=== PATIENT | female | born 1955 | race African-American/Black ===

== ENCOUNTER 2016-11-28 02:10 | Emergency (ER) | payer SELFPAY ==
[2016-11-28 02:18] VITALS: BP 127/86
[2016-11-28] MEDS ORDERED: Ibuprofen TAB* 800 MG PO ONE (03:03)
--- NOTE | 2016-11-28 03:11 | ED ---
Adam Pruett Karl, scribed for Jorge Avendano MD on 11/28/16 at 0231 . Lower Extremity - HPI Summary HPI Summary: Pt is a 61 y/o female that presents to the ED c/o 6/10 left foot and right knee pain after slipping on ice yesterday evening. Pt reported that she has been having trouble ambulating since the fall. Pt stated she cannot move her left foot and has significant swelling on her right knee. Pt denied any use of OTC pain medication such as Motrin or Ibuprofen. - History of Current Complaint Chief Complaint: EDExtremityLower Stated Complaint: FELL-RT KNEE/LT FOOT PAIN Time Seen by Provider: 11/28/16 02:24 Hx Obtained From: Patient Hx Last Menstrual Period: SEP 2002 Mechanism Of Injury: Fall From A Standing Position Onset/Duration: Still Present Severity Initially: Moderate Severity Currently: Moderate Pain Intensity: 6 - left foot/ right knee Pain Scale Used: 0-10 Numeric Timing: Constant Location: Is Discrete @ - left foot/right knee Aggravating Factor(s): Weight Bearing Alleviating Factor(s): Ice - Allergies/Home Medications Allergies/Adverse Reactions: Allergies Allergy/AdvReac Type Severity Reaction Status Date / Time Diphenhydramine Allergy Intermediate Unknown Verified 11/28/16 02:25 [From Benadryl] Reaction Details Home Medications: Home Medications [id number]-[id number]-[id number] [Calcium & Magnesium + Zin 334-134-5 mg] 1 tab PO [History] PMH/Surg Hx/FS Hx/Imm Hx Endocrine/Hematology History: Denies: Hx Diabetes, Hx Thyroid Disease Cardiovascular History: Denies: Hx Hypertension Respiratory History: Denies: Hx Asthma, Hx Chronic Obstructive Pulmonary Disease (COPD) GI History: Denies: Hx Ulcer Musculoskeletal History: Denies: Hx Rheumatoid Arthritis, Hx Osteoporosis - Surgical History Surgery Procedure, Year, and Place: gastric bypass Infectious Disease History: No Infectious Disease History: Denies: Hx Clostridium Difficile, Hx Hepatitis, Hx Human Immunodeficiency Virus (HIV), Hx of Known/Suspected MRSA, Hx Shingles, Hx Tuberculosis, Hx Known/ Suspected VRE, Hx Known/Suspected VRSA, History Other Infectious Disease, Traveled Outside the [place] in Last 30 Days - Family History Known Family History: Negative: Cardiac Disease, Hypertension, Diabetes - Social History Alcohol Use: Rare Substance Use Type: Reports: None Smoking Status (MU): Former Smoker Have You Smoked in the Last Year: No Review of Systems Constitutional: Negative Eyes: Negative ENT: Negative Cardiovascular: Negative Respiratory: Negative Gastrointestinal: Negative Genitourinary: Negative Positive: Arthralgia - left foot/right knee, Edema - right knee Skin: Negative Neurological: Negative Psychological: Normal All Other Systems Reviewed And Are Negative: Yes Physical Exam Triage Information Reviewed: Yes Vital Signs On Initial Exam: Initial Vitals Temp Pulse Resp BP Pulse Ox 96 F 107 20 127/86 99 11/28/16 02:13 11/28/16 02:13 11/28/16 02:13 11/28/16 02:13 11/28/16 02:13 Vital Signs Reviewed: Yes Appearance: Positive: Pain Distress - MILD DISCOMFORT, Obese Skin: Positive: Warm Head/Face: Positive: Normal Head/Face Inspection ENT: Positive: Hearing grossly normal Respiratory/Lung Sounds: Positive: Breath Sounds Present Musculoskeletal: Positive: Other - RT KNEE MILD PATELLA SWELLING, NO DEFORMITY, FROM LT ANKLE FROM, NVI, NO DEFORMITY Neurological: Positive: Sensory/Motor Intact, Alert, Oriented to Person Place, Time Diagnostics - Vital Signs Vital Signs Temp Pulse Resp BP Pulse Ox 11/28/16 02:13 96 F 107 20 127/86 99 - Laboratory Lab Statement: Any lab studies that have been ordered have been reviewed, and results considered in the medical decision making process. - Radiology XR Left Foot Xray Interpretation: No Acute Changes Radiology Interpretation Completed By: ED Physician - IMPRESSION: No evidence for fracture of the left foot. XR Right Knee Xray Interpretation: No Acute Changes Radiology Interpretation Completed By: ED Physician - IMPRESSION: No evidence for fracture of the right knee. Soft tissue swelling of the right knee. Lower Extremity Course/Dx - Diagnoses Provider Diagnoses: Contusion of left foot, Contusion of right knee Discharge - Discharge Plan Condition: Improved Disposition: HOME Prescriptions: Ibuprofen TAB* [Motrin TAB* 600 MG] 600 mg PO Q6H #30 tab Patient Education Materials: Knee Pain (ED), Arthralgia (ED) Additional Instructions: Please follow up with your primary care provider and Dr. Reddy (Orthopedics). Return to the emergency department for changing or worsening symptoms. The documentation as recorded by the Adam chambers Karl accurately reflects the service I personally performed and the decisions made by Juan Alberto pop David, MD.
--- NOTE | 2016-11-28 18:53 | RAD ---
Indication: Foot pain 3 views of the foot are reviewed. There appears to be a lucency at the distal end of the proximal phalanx of the great toe which is likely due to erosion. No definite fracture is noted although degenerative changes of the first metatarsal phalangeal joint is noted. IMPRESSION: No fracture is noted. Likely erosion at the distal end of the proximal phalanx of the great toe. Degenerative changes of the first metatarsal phalangeal joint is noted.
--- NOTE | 2016-11-28 18:57 | RAD ---
Indication: Fall. Right knee injury. 2 views of the knee demonstrates degenerative changes of the patellofemoral joint. Suprapatellar effusion is noted. Osteophyte formation is noted. No definite fracture is identified. IMPRESSION: Degenerative changes of the patellofemoral joint. No fracture is noted.
== END 2016-11-28 03:20 | disposition home or self-care (01) ==
LOC: ED 02:10
DX: S90.32XA Contusion of left foot, initial encounter (principal); S80.01XA Contusion of right knee, initial encounter; M25.561 Pain in right knee; M79.672 Pain in left foot; Z87.891 Personal history of nicotine dependence; W19.XXXA Unspecified fall, initial encounter; Y93.9 Activity, unspecified; Y92.9 Unspecified place or not applicable; Y99.9 Unspecified external cause status
CPT/HCPCS: 99282; A9270-GY

== ENCOUNTER → 2017-06-25 02:46 | Emergency (ER) | payer SELFPAY ==
[~2017-06-25 02:46] MED LIST: Haloperidol INJ IV/IM* 5 MG/ML AMP ONE; LORazepam INJ* 2 MG/ML 1 ML VIAL ONE
--- NOTE | 2017-06-25 04:05 | ED ---
Kel Pruett SooYoung, scribed for Jorge Avendano MD on 06/25/17 at 0252 . Substance Abuse/Use - HPI Summary HPI Summary: LEVEL 5 CAVEAT - ETOH INTOXICATION A 62 y/o F BIBA and police presents to ED for ETOH intoxication. Pt was disoriented, and arrested. She states she drank a lot. States she wants to go home. - History Of Current Complaint Chief Complaint: EDSubstanceAbuse Stated Complaint: ETOH Time Seen by Provider: 06/25/17 02:47 Hx Obtained From: Patient, EMS, Other: - police Hx Last Menstrual Period: SEP 2002 Ingestion History: Type/Name Of Drug - ETOH Overdose Characteristics: Oral - Allergies/Home Medications Allergies/Adverse Reactions: Allergies Allergy/AdvReac Type Severity Reaction Status Date / Time Diphenhydramine Allergy Intermediate Unknown Verified 11/28/16 02:25 [From Benadryl] Reaction Details PMH/Surg Hx/FS Hx/Imm Hx Previously Healthy: Yes - denies PMHx Endocrine/Hematology History: Denies: Hx Diabetes, Hx Thyroid Disease Cardiovascular History: Denies: Hx Hypertension Respiratory History: Denies: Hx Asthma, Hx Chronic Obstructive Pulmonary Disease (COPD) GI History: Denies: Hx Ulcer Musculoskeletal History: Denies: Hx Rheumatoid Arthritis, Hx Osteoporosis - Surgical History Surgery Procedure, Year, and Place: gastric bypass Infectious Disease History: Denies: Hx Clostridium Difficile, Hx Hepatitis, Hx Human Immunodeficiency Virus (HIV), Hx of Known/Suspected MRSA, Hx Shingles, Hx Tuberculosis, Hx Known/ Suspected VRE, Hx Known/Suspected VRSA, History Other Infectious Disease - Family History Known Family History: Negative: Cardiac Disease, Hypertension, Diabetes - Social History Occupation: Employed Full-time Lives: With Family Alcohol Use: Rare Substance Use Type: Reports: None Smoking Status (MU): Former Smoker Have You Smoked in the Last Year: No Review of Systems - ROS Summary Review of Systems Summary: LEVEL 5 CAVEAT - ETOH INTOXICATION Positive: Other - pos: ETOH intoxication All Other Systems Reviewed And Are Negative: No Physical Exam Triage Information Reviewed: Yes Vital Signs Reviewed: Yes Appearance: Positive: Well-Appearing, No Pain Distress - aob Skin: Positive: Warm, Dry Head/Face: Positive: Normal Head/Face Inspection Eyes: Positive: TAMEKA ENT: Positive: Hearing grossly normal Neck: Positive: Supple Respiratory/Lung Sounds: Positive: Breath Sounds Present Cardiovascular: Positive: RRR Abdomen Description: Positive: Nontender, Soft Musculoskeletal: Positive: Strength/ROM Intact Neurological: Positive: Sensory/Motor Intact Course/Dx - Course Course Of Treatment: Pt's serum alcohol is 260. - Diagnoses Provider Diagnoses: Alcohol intoxication Discharge - Discharge Plan Condition: Improved Disposition: HOME Patient Education Materials: Alcohol Intoxication (ED) Referrals: No Primary Care Phys,NOPCP [Primary Care Provider] - [facility] [place]] The documentation as recorded by the Kel chambers SooYoung accurately reflects the service I personally performed and the decisions made by , Jorge Avendano MD.
[2017-06-25 09:46] VITALS: BP 116/64
== END | disposition home or self-care (01) ==
LOC: ED 02:46
DX: F10.129 Alcohol abuse with intoxication, unspecified (principal); Z87.891 Personal history of nicotine dependence
CPT/HCPCS: 36415; 80320; 99285; G0480; J1630; J2060

== ENCOUNTER 2017-08-10 15:04 | Emergency (ER) | payer BC ==
[2017-08-10 15:11] VITALS: BP 100/67
--- NOTE | 2017-08-10 15:51 | UC ---
Barbie Pruett Emily, scribed for Claudette Mejia MD on 08/10/17 at 1530 . Dental HPI - HPI Summary HPI Summary: This patient is a 62 year old F presenting to urgent care with a chief complaint of tooth pain in left lower jaw that began Luke days ago. Tooth is sensitive to cold and touch. The CC is described as throbbing. Pt has developed mild swelling of lower gum near tooth. The patient rates the pain 7/10 in severity. Symptoms were not alleviated by ibuprofen. Patient denies fevers, chills, nausea, and vomiting. Pt reports having frequent dental problems. - does not have a dentist. Pt is not immunocompromised. Patients medications reviewed this visit. - History of Current Complaint Chief Complaint: UCDentalProblem Stated Complaint: TOOTH PAIN Time Seen by Provider: 08/10/17 15:11 Hx Obtained From: Patient Hx Last Menstrual Period: SEP 2002 Onset/Duration: Sudden Onset, Lasting Days, Still Present Severity: Moderate Pain Intensity: 7 Pain Scale Used: 0-10 Numeric Aggravating Factor(s): Cold - Allergies/Home Medications Allergies/Adverse Reactions: Allergies Allergy/AdvReac Type Severity Reaction Status Date / Time Diphenhydramine Allergy Intermediate Unknown Verified 11/28/16 02:25 [From Benadryl] Reaction Details PMH/Surg Hx/FS Hx/Imm Hx Previously Healthy: Yes Other Psychological History: Negative hepatits and HIV - Surgical History Surgical History: Yes Surgery Procedure, Year, and Place: gastric bypass - Family History Known Family History: Positive: Diabetes, Other - Cancer Negative: Cardiac Disease, Hypertension - Social History Occupation: Employed Full-time Lives: With Family Alcohol Use: Occasionally Substance Use Type: None Smoking Status (MU): Former Smoker Have You Smoked in the Last Year: No When Did the Patient Quit Smoking/Using Tobacco: 24 years Review of Systems Constitutional: Other - Negative fever and chills ENT: Other - Tooth pain Gastrointestinal: Other - Negative nausea and vomiting Is Patient Immunocompromised?: No All Other Systems Reviewed And Are Negative: Yes Physical Exam Triage Information Reviewed: Yes Appearance: Well-Appearing, No Pain Distress, Well-Nourished Vital Signs: Initial Vital Signs Temp 96.9 F 08/10/17 15:08 Pulse 41 08/10/17 15:08 Resp 18 08/10/17 15:08 BP 100/67 08/10/17 15:08 Pulse Ox 99 08/10/17 15:08 Vital Signs Reviewed: Yes Eye Exam: Normal Eyes: Positive: Conjunctiva Clear ENT Exam: Normal ENT: Positive: Hearing grossly normal, Pharynx normal, TMs normal Dental: Positive: Other: - #23 + obvious cavity at gumline + TTP no discharge No fluctuance + TTP tooth. buccal gumline No edema of tongue No TMJ pain, No trismus Neck exam: Normal Neck: Positive: Supple, Nontender, No Lymphadenopathy Respiratory Exam: Normal Respiratory: Positive: Chest non-tender, Lungs clear, Normal breath sounds Cardiovascular Exam: Normal Cardiovascular: Positive: RRR, No Murmur Musculoskeletal Exam: Normal Neurological Exam: Normal Psychological Exam: Normal Skin Exam: Normal Dental Complaint Course/Dx - Course Course Of Treatment: Pt with discomfort and swelling #23 - erythema and swelling at gumline. no discharge. rx penvk. swish/spit. motrin/apap. T+C# 3 for bedtime - precautions discussed. dental list given. pt also inquired re new PCP second to difficulty getting appt - physician referral center info given - Differential Dx/Diagnosis Provider Diagnoses: dental pain Discharge - Discharge Plan Condition: Stable Disposition: HOME Prescriptions: Acetaminop/Codeine 30 MG TAB* [Tylenol/Codeine 30 MG TAB*] 1 - 2 tab PO Q6H PRN #10 tab MDD 8 PRN Reason: Pain Penicillin VK 500 MG TAB(NF) [Penicillin VK 500 mg Tab] 500 mg PO TID #30 tab Patient Education Materials: Toothache (ED) Referrals: No Primary Care Phys,NOPCP [Primary Care Provider] - Ebonie Dubon MD [Medical Doctor] - Additional Instructions: - Take antibiotics as prescribed until gone - Okay to alternate ibuprofen (Advil, Motrin) and tylenol product (tylenol or tylenol with codeine) every 3 hours for pain. Take with food. Do NOT drive, operate machinery or drink alcohol while taking codeine - Codeine may cause constipation - use a stool softner as needed - swish and spit with warm, salt water - Contact a dentist to schedule a follow-up appointment. - you have been given a the physician referral center number- call for assistance if you want to change your primary doctor The documentation as recorded by the Barbie chambers Emily accurately reflects the service I personally performed and the decisions made by me, Claudette Mejia MD.
== END 2017-08-10 15:56 | disposition home or self-care (01) ==
LOC: UCEAST 15:04
DX: K08.89 Other specified disorders of teeth and supporting structures (principal); Z98.84 Bariatric surgery status; Z87.891 Personal history of nicotine dependence
CPT/HCPCS: 99212; G0463

== ENCOUNTER 2017-11-21 02:22 | Emergency (ER) | payer BC ==
[2017-11-21 03:34] LABS: ABS Basophils 0 10^3/ul (0-0.2); ABS Eosinophils 0.3 10^3/ul (0-0.6); ABS Lymphocytes 2.4 10^3/ul (1.0-4.8); ABS Monocytes 0.6 10^3/ul (0-0.8); ABS Neutrophils 4.4 10^3/ul (1.5-7.7); ABS Nucleated RBC 0 10^3/ul; Eosinophil % 4.2 % (0-6); Hematocrit 38 % (35-47); Lymphocyte % 31.5 % (25-47); Mean Corpuscular HGB Conc 34 g/dl (31-36); Mean Corpuscular Hemoglobin 34 pg (27-31); Mean Corpuscular Volume 100 fL (80-97); Mean Platelet Volume 9 um3 (7.4-10.4); Nucleated Red Blood Cells % 0.2; Platelet Count 151 10^3/ul (150-450); Red Blood Count 3.81 10^6/ul (4.0-5.4); Red Cell Distribution Width 16 % (10.5-15); White Blood Count 7.7 10^3/ul (3.5-10.8)
[2017-11-21 03:45] LABS: EGFR Non-African American 56.7 (>60)
[2017-11-21] MEDS ORDERED: Potassium Chlor TAB* 20 MEQ TAB.ER PO ONE (04:02)
--- NOTE | 2017-11-21 09:19 | ED ---
I, Mary Olivera, scribed for Kirk Montanez MD on 11/21/17 at 0715 . Progress - Progress Note Progress Note: This patient is a sign out from Dr. Escalante and is awaiting ETOH metabolism to decrease current ETOH level. Course/Dx - Diagnoses Provider Diagnoses: Alcohol intoxication The documentation as recorded by the bobbiibJarod mandujano Stephanie accurately reflects the service I personally performed and the decisions made by , Kirk Montanez MD.
[2017-11-21 09:43] VITALS: BP 0/0
== END 2017-11-21 09:39 | disposition home or self-care (01) ==
LOC: ED 02:22
DX: F10.129 Alcohol abuse with intoxication, unspecified (principal)
CPT/HCPCS: 36415; 80053; 80320; 80329; 84443; 85025; 99284; A9270-GY; G0480

== ENCOUNTER 2018-05-29 02:19 | Emergency (ER) | payer SELFPAY ==
[2018-05-29] MEDS ORDERED: Lidocaine/Epineph/Tetraca SOL* (LET solution) 4 ML BTL ONE (03:03)
[2018-05-29 03:34] LABS: ABS Basophils 0 10^3/ul (0-0.2); ABS Eosinophils 0.3 10^3/ul (0-0.6); ABS Lymphocytes 1.5 10^3/ul (1.0-4.8); ABS Monocytes 0.5 10^3/ul (0-0.8); ABS Neutrophils 3.7 10^3/ul (1.5-7.7); ABS Nucleated RBC 0 10^3/ul; Eosinophil % 4.5 % (0-6); Hematocrit 38 % (35-47); Lymphocyte % 24.5 % (25-47); Mean Corpuscular HGB Conc 34 g/dl (31-36); Mean Corpuscular Hemoglobin 34 pg (27-31); Mean Corpuscular Volume 100 fL (80-97); Mean Platelet Volume 8.7 um3 (7.4-10.4); Nucleated Red Blood Cells % 0; Platelet Count 124 10^3/ul (150-450); Red Blood Count 3.83 10^6/ul (4.00-5.40); Red Cell Distribution Width 16 % (10.5-15)
[2018-05-29 03:52] LABS: EGFR Non-African American 51.1 (>60)
--- NOTE | 2018-05-29 04:28 | ED ---
Head Injury - HPI Summary HPI Summary: Pt is a 63 y/o F brought in by ambulance due to head injury. Pt was taking out her compost at around 0100 today and fell down a staircase, landing at the bottom of the stairs. She reports pain due to a laceration on her upper lip as well as pain from a wound on the right side of the top of her head. Pain rated 9 /10 on triage. In the room, Pt states that she believes she experienced LOC but is unsure, and does not remember events after fall. She also notes an abrasion on left knee which causes pain. Pt called ambulance herself. - History Of Current Complaint Chief Complaint: EDFacialInjury Stated Complaint: FALL Time Seen by Provider: 05/29/18 02:55 Hx Last Menstrual Period: SEP 2002 Mechanism Of Injury: Fall From A Standing Position - fell from standing position on staircase to bottom stair Onset/Duration: Started Hours Ago - fall occurred around 0100 Severity Currently: Severe Pain Intensity: 9 Pain Scale Used: 0-10 Numeric - 9/10 Location of Head Injury: Diffuse - laceration on upper lip, wound on right side of forehead Aggravating Factor(s): Other: - nothing Alleviating Factor(s): Other: - nothing Associated Signs And Symptoms: LOC Duration Unknown - Pt states she is unsure of LOC, Memory Loss, Other: - abrasion on left knee causing pain - Allergies/Home Medications Allergies/Adverse Reactions: Allergies Allergy/AdvReac Type Severity Reaction Status Date / Time diphenhydramine Allergy Unknown Verified 05/29/18 02:37 [From Benadryl] Reaction Details PMH/Surg Hx/FS Hx/Imm Hx Endocrine/Hematology History: Denies: Hx Diabetes, Hx Thyroid Disease Cardiovascular History: Denies: Hx Hypertension Respiratory History: Denies: Hx Asthma, Hx Chronic Obstructive Pulmonary Disease (COPD) GI History: Denies: Hx Ulcer Musculoskeletal History: Denies: Hx Rheumatoid Arthritis, Hx Osteoporosis - Surgical History Surgery Procedure, Year, and Place: gastric bypass - Immunization History Date of Tetanus Vaccine: utd Date of Influenza Vaccine: none Infectious Disease History: No Infectious Disease History: Denies: Hx Clostridium Difficile, Hx Hepatitis, Hx Human Immunodeficiency Virus (HIV), Hx of Known/Suspected MRSA, Hx Shingles, Hx Tuberculosis, Hx Known/ Suspected VRE, Hx Known/Suspected VRSA, History Other Infectious Disease, Traveled Outside the [place] in Last 30 Days - Family History Known Family History: Positive: Diabetes, Other - Cancer Negative: Cardiac Disease, Hypertension - Social History Alcohol Use: Daily Alcohol Amount: 3-4 glasses wine Substance Use Type: Reports: None Smoking Status (MU): Former Smoker Have You Smoked in the Last Year: No Review of Systems Positive: Other - laceration on upper lip, wound on right side of forehead, abrasion on left knee Neurological: Other - memory loss Positive: Syncope - Pt is unsure if she experienced LOC All Other Systems Reviewed And Are Negative: Yes Physical Exam - Summary Physical Exam Summary: Appearance: Well-appearing, Well-nourished, lying in bed comfortably Skin: Warm, dry, no obvious rash Eyes: sclera anicteric, no conjunctival pallor ENT: mucous membranes moist, pharynx appears normal Neck: Supple, nontender Respiratory: Clear to auscultation, no signs of respiratory distress Cardiovascular: Normal S1, S2. No murmurs. Normal distal pulses in tibial and radial bilaterally. Abdomen: Obese but not soft, nontender, normal active bowel sounds present Musculoskeletal: Normal, Strength/ROM Intact. Pt has 1 cm laceration of upper lip. Scattered abrasions and contusions about forehead and right cheek. Left knee abrasion and some associated edema. Neurological: A&Ox3, awake and alert, mentation is normal, speech is fluent and appropriate. FROM. Psychiatric: affect is normal, does not appear anxious or depressed Triage Information Reviewed: Yes Vital Signs On Initial Exam: Initial Vitals Temp Pulse Resp BP Pulse Ox 97.3 F 69 16 147/85 93 05/29/18 02:35 05/29/18 02:35 05/29/18 02:35 05/29/18 02:35 05/29/18 02:35 Vital Signs Reviewed: Yes Procedures - Laceration/Wound Repair 1 Location: mouth Description: Linear Anesthesia: Local, 2.0%, Epi Length, Depth and Shape: 1 cm Betadine Prep?: Yes Diagnostics - Vital Signs Vital Signs Temp Pulse Resp BP Pulse Ox 05/29/18 02:35 97.3 F 69 16 147/85 93 - Laboratory Lab Results: Lab Results 05/29/18 05/29/18 Range/Units 03:22 03:22 WBC 6.0 (3.5-10.8) 10^3/ul RBC 3.83 L (4.00-5.40) 10^6/ul Hgb 13.0 (12.0-16.0) g/dl Hct 38 (35-47) % MCV 100 H (80-97) fL MCH 34 H (27-31) pg MCHC 34 (31-36) g/dl RDW 16 H (10.5-15) % Plt Count 124 L (150-450) 10^3/ul MPV 8.7 (7.4-10.4) um3 Neut % (Auto) 62.3 (38-83) % Lymph % (Auto) 24.5 L (25-47) % [place] % (Auto) 7.9 H (0-7) % Eos % (Auto) 4.5 (0-6) % Baso % (Auto) 0.8 (0-2) % Absolute Neuts (auto) 3.7 (1.5-7.7) 10^3/ul Absolute Lymphs (auto) 1.5 (1.0-4.8) 10^3/ul Absolute Monos (auto) 0.5 (0-0.8) 10^3/ul Absolute Eos (auto) 0.3 (0-0.6) 10^3/ul Absolute Basos (auto) 0 (0-0.2) 10^3/ul Absolute Nucleated RBC 0 10^3/ul Nucleated RBC % 0 Sodium 143 (135-145) mmol/L Potassium 3.6 (3.5-5.0) mmol/L Chloride 104 (101-111) mmol/L Carbon Dioxide 24 (22-32) mmol/L Anion Gap 15 H (2-11) mmol/L BUN 27 H (6-24) mg/dL Creatinine 1.08 H (0.51-0.95) mg/dL Est GFR ( Amer) 61.8 (>60) Est GFR (Non-Af Amer) 51.1 (>60) BUN/Creatinine Ratio 25.0 H (8-20) Glucose 96 (70-100) mg/dL Calcium 9.8 (8.6-10.3) mg/dL Total Bilirubin 0.50 (0.2-1.0) mg/dL AST 53 H (13-39) U/L ALT 29 (7-52) U/L Alkaline Phosphatase 52 (34-104) U/L Total Protein 7.0 (6.4-8.9) g/dL Albumin 4.4 (3.2-5.2) g/dL Globulin 2.6 (2-4) g/dL Albumin/Globulin Ratio 1.7 (1-3) Serum Alcohol 242 H (<10) mg/dL Result Diagrams: 05/29/18 03:22 05/29/18 03:22 Lab Statement: Any lab studies that have been ordered have been reviewed, and results considered in the medical decision making process. - CT Head CT CT Interpretation: No Acute Changes CT Interpretation Completed By: Radiologist - Mild involutional changes. No hemorrhage. No mass. No obvious infarct. Osseous structures are intact. Right periorbital/supraorbital soft tissue swelling. This report has been reviewed by ED physician. Head Injury Course/Dx Course Of Treatment: 63 y/o apparent alcoholic who allegedly fell while bringing compost down the stairs. She is clearly intoxicated. Fortunately her injuries are relatively minor. She is stable for discharge at this point. - Diagnoses Provider Diagnoses: Facial contusion, Lip laceration, Fall (on) (from) other stairs and steps, initial encounter Discharge - Sign-Out/Discharge Documenting (check all that apply): Patient Departure - Discharge Plan Condition: Good Disposition: HOME Patient Education Materials: Abuse of Alcohol (ED) Referrals: No Primary Care Phys,NOPCP [Primary Care Provider] -
[2018-05-29 05:03] VITALS: BP 0/0
--- NOTE | 2018-05-29 08:18 | RAD ---
Indication: Head injury. Comparison: September 13, 2011 Technique: Noncontrast CT vertex of skull through foramen magnum. Report: Unremarkable cerebral sulci, ventricles, and basal cisterns. Mild to moderate prominence of the cerebellar fissures reflecting atrophy without significant change. Negative for licona matter white matter obscuration, intra or extra-axial hemorrhage, or mass effect. Negative for calvarial or skull base fracture. Clear visualized paranasal sinuses and mastoid air spaces. Soft tissue edema and potential infiltrating hematoma superficial to the superior lateral margin of the RIGHT orbit. Suggestion of punctate foreign bodies along the skin surface. Minimal subcutaneous emphysema. Negative for RIGHT orbit post septal edema or hematoma. The ocular globes are symmetric. IMPRESSION: #. No CT evidence for traumatic brain injury. #. Soft tissue edema and potential infiltrating hematoma superficial to the superior lateral margin of the RIGHT orbit. Suggestion of punctate foreign bodies along the skin surface. Minimal subcutaneous emphysema. #. Negative for RIGHT orbit post septal edema or hematoma.
== END 2018-05-29 05:01 | disposition home or self-care (01) ==
LOC: ED 02:19
DX: S00.83XA Contusion of other part of head, initial encounter (principal); S01.511A Laceration without foreign body of lip, initial encounter; W10.9XXA Fall (on) (from) unspecified stairs and steps, initial encounter; Y92.9 Unspecified place or not applicable; F10.229 Alcohol dependence with intoxication, unspecified; Z87.891 Personal history of nicotine dependence; Z88.8 Allergy status to other drugs, medicaments and biological substances
CPT/HCPCS: 12011; 36415; 70450; 80053; 80320; 85025; 99282; G0480

== ENCOUNTER 2018-05-30 18:25 | Emergency (ER) | payer BC ==
[2018-05-30] MEDS ORDERED: Lidocaine 1%* 5 ML VIAL INJ ONE (19:03)
--- NOTE | 2018-05-30 19:18 | UC ---
Lower Extremity/Ankle HPI - HPI Summary HPI Summary: This patient is a 63 year old F presenting to [facility] with a chief complaint of left foot pain and a foreign body sensation in plantar aspect of left foot after dropping a dish on her foot and accidentally stepping on a broken piece. She states her son attempted to remove the piece but was unsuccessful. Pain is 6 /10 upon triage. - History of Current Complaint Stated Complaint: GLASS- L FOOT Time Seen by Provider: 05/30/18 18:53 Hx Obtained From: Patient Hx Last Menstrual Period: SEP 2002 Onset/Duration: Lasting Hours Pain Intensity: 6 - Allergies/Home Medications Allergies/Adverse Reactions: Allergies Allergy/AdvReac Type Severity Reaction Status Date / Time diphenhydramine Allergy Unknown Verified 05/29/18 02:37 [From Benadryl] Reaction Details PMH/Surg Hx/FS Hx/Imm Hx Previously Healthy: Yes - Denies PMHx - Surgical History Surgical History: Yes Surgery Procedure, Year, and Place: gastric bypass - Family History Known Family History: Positive: Diabetes, Other - Cancer Negative: Cardiac Disease, Hypertension - Social History Alcohol Use: Daily Alcohol Amount: 3-4 glasses wine Substance Use Type: None Smoking Status (MU): Former Smoker Have You Smoked in the Last Year: No When Did the Patient Quit Smoking/Using Tobacco: 24 years Review of Systems Constitutional: Negative Musculoskeletal: Myalgia - left foot pain and FB sensation All Other Systems Reviewed And Are Negative: Yes Physical Exam - Summary Physical Exam Summary: General: well-appearing, no pain distress Skin: warm, color reflects adequate perfusion, dry, puncture wound to plantar aspect of left foot Head: normal Eyes: EOMI, TAMEKA ENT: normal Neck: supple, nontender Respiratory: CTA, breath sounds present Cardiovascular: RRR Abdomen: soft, nontender Bowel: present Musculoskeletal: normal, strength/ROM intact Neurological: sensory/motor intact, A&O x3 Psychological: affect/mood appropriate Triage Information Reviewed: Yes Vital Signs Reviewed: Yes Procedures - Procedure Summary Procedure Summary: Left foot puncture wound cleaned with sterile saline and 1.0 % lidocaine. Wound was opened with 11 blade. 6mm while porcelain foreign body removed from foot. One 5.0 prolene suture placed. Post proceudre XRay reveals no foreign body. - Laceration/Wound Repair 1 Location: Other - left foot Description: Linear Anesthesia: 1.0%, Lido Laceration/Wound Explored: foreign body removed Closure: Single Layer Debridement: minimal Suture Type: Prolene Number of Sutures: 1 Diagnostics - Radiology L FOOT XR Radiology Interpretation Completed By: Radiologist - NO RADIOGRAPHICALLY APPARENT ACUTE SUBCUTANEOUS FOREIGN BODY. If the patient's symptoms persist, follow-up imaging is recommended. Dr. Denise has reviewed this report. Lower Extremity Course/Dx - Course Course Of Treatment: BP noted and advised to follow up with PCP. TDAP GIVEN IN CLINIC. RX AUGMENTIN. - Differential Dx/Diagnosis Provider Diagnoses: Elevated BP without dx of HTN. LEFT FOOT PUNCTURE WOUND AND FOREIGN BODY Discharge - Sign-Out/Discharge Documenting (check all that apply): Patient Departure - Discharge Plan Condition: Stable Disposition: HOME Prescriptions: Amoxicillin/Clavulanate TAB* [Augmentin TAB 875*] 875 mg PO BID #14 tab HYDROcodone/ACETAMIN 5-325 MG* [Amboy 5-325 TAB*] 1 tab PO Q6H PRN #6 tab MDD 4 PRN Reason: Pain Patient Education Materials: Soft Tissue Foreign Body (ED), Puncture Wound (ED) Referrals: Ebonie Dubon MD [Primary Care Provider] - Additional Instructions: Your blood pressure was elevated during todays visit; please follow up with your primary care provider within a week for further evaluation. FOLLOW UP WITH YOUR DOCTOR. GET RECHECKED FOR ANY WORSENING OF YOUR CONDITION; PAIN, FEVER, SIGNS OF INFECTION OR QUESTIONS OR CONCERNS. - Billing Disposition and Condition Condition: STABLE Disposition: Home
[2018-05-30] MEDS ORDERED: Tetan/Diph/Pertus SYR(Tdap)* 0.5 ML SYR(BOOSTRIX) use SYR IM ONE (19:43)
[2018-05-30] MEDS ORDERED: Amoxicillin/Clavulanate TAB* 875 MG PO ONE (19:44)
--- NOTE | 2018-05-30 20:50 | RAD ---
INDICATION: Patient stepped on glass. COMPARISON: Radiograph dated November 28, 2016 TECHNIQUE: 4 views of the left foot were obtained. FINDINGS: Upon request a BB marker was applied to the plantar surface of the foot where the patient indicated the puncture wound occurred. There is no radiodense material in the subcutaneous tissue adjacent to the external BB marker. Overlying the subcutaneous tissue inferior to the calcaneus there is a 3 mm linear density and there is also a linear density seen at the base of the fifth metatarsal but these are unchanged since the foot radiograph acquired November 28, 2016. The adequately corticated bones are properly aligned. Joint spaces appear maintained. No fracture, dislocation or focal bony abnormality is seen. IMPRESSION: NO RADIOGRAPHICALLY APPARENT ACUTE SUBCUTANEOUS FOREIGN BODY. If the patient's symptoms persist, follow-up imaging is recommended.
[2018-05-30] MEDS ORDERED: HYDROcodone/ACETAMIN 5-325 MG* 1 TAB PO ONE (21:00)
[2018-05-30 21:22] VITALS: BP 118/99
== END 2018-05-30 21:25 | disposition home or self-care (01) ==
LOC: UCEAST 18:25
DX: S91.342A Puncture wound with foreign body, left foot, initial encounter (principal); W22.8XXA Striking against or struck by other objects, initial encounter; Y93.9 Activity, unspecified; Y92.9 Unspecified place or not applicable; Z23 Encounter for immunization; Z88.8 Allergy status to other drugs, medicaments and biological substances; Z98.84 Bariatric surgery status; Z80.9 Family history of malignant neoplasm, unspecified; Z83.3 Family history of diabetes mellitus; Z87.891 Personal history of nicotine dependence
CPT/HCPCS: 28190; 90715; 99212; A9270-GY; G0463

== ENCOUNTER 2018-12-07 02:43 | Emergency (ER) | payer BC, OTHER ==
[2018-12-07] MEDS ORDERED: hydrOXYzine IM* 50 MG/ML VIAL IM ONE (02:50)
[2018-12-07] MEDS ORDERED: LORazepam INJ* 2 MG/ML 1 ML VIAL IM ONE (02:50)
[2018-12-07] MEDS ORDERED: Thiamine IV* 100 MG, Folic Acid IV* 1 MG, Multiple Vitamin IV ADULT* 10 ML in NS 0.9% 1... IV ONE (02:50)
[2018-12-07] MEDS ORDERED: Haloperidol INJ IV/IM* 5 MG/ML AMP IM ONE (02:50)
--- NOTE | 2018-12-07 02:58 | ED ---
Altered Mental Status - HPI Summary HPI Summary: Patient is a 63 y/o F presenting to ED for AMS. EMS reports that the patient has been outside of her home since 2300 yesterday, 12/06/18. In the room, patient is agitated and uncooperative. Level 5 Caveat. - History Of Current Complaint Stated Complaint: GENERAL Time Seen by Provider: 12/07/18 02:45 Hx Obtained From: EMS Hx From Patient Unobtainable Due To: Altered Mental Status Hx Last Menstrual Period: SEP 2002 Onset/Duration: Still Present Timing: Constant Severity Currently: None Character: Agitation Aggravating Factor(s): Other - alcohol Alleviating Factor(s): Nothing Associated Signs And Symptoms: Positive: Negative - Allergies/Home Medications Allergies/Adverse Reactions: Allergies Allergy/AdvReac Type Severity Reaction Status Date / Time diphenhydramine Allergy Unknown Verified 05/29/18 02:37 [From Benadryl] Reaction Details Home Medications: Home Medications Unobtainable 12/07/18 [History Confirmed 12/07/18] PMH/Surg Hx/FS Hx/Imm Hx Endocrine/Hematology History: Denies: Hx Diabetes, Hx Thyroid Disease Cardiovascular History: Denies: Hx Hypertension Respiratory History: Denies: Hx Asthma, Hx Chronic Obstructive Pulmonary Disease (COPD) GI History: Denies: Hx Ulcer Musculoskeletal History: Denies: Hx Rheumatoid Arthritis, Hx Osteoporosis - Surgical History Surgery Procedure, Year, and Place: gastric bypass - Immunization History Date of Tetanus Vaccine: utd Date of Influenza Vaccine: none Infectious Disease History: Denies: Hx Clostridium Difficile, Hx Hepatitis, Hx Human Immunodeficiency Virus (HIV), Hx of Known/Suspected MRSA, Hx Shingles, Hx Tuberculosis, Hx Known/ Suspected VRE, Hx Known/Suspected VRSA, History Other Infectious Disease - Family History Known Family History: Positive: Diabetes, Other - Cancer Negative: Cardiac Disease, Hypertension - Social History Alcohol Use: Daily Alcohol Amount: 3-4 glasses wine Substance Use Type: Reports: None Smoking Status (MU): Former Smoker Have You Smoked in the Last Year: No Review of Systems - ROS Summary Review of Systems Summary: LEVEL 5 CAVEAT, AMS Negative: Fever Psychological: Other - POSITIVE - AMS All Other Systems Reviewed And Are Negative: No - Comments Additional Review of Systems Comments: LEVEL 5 CAVEAT, AMS Physical Exam - Summary Physical Exam Summary: VITAL SIGNS: Reviewed. GENERAL: Patient is a well-developed and obese FEMALE who is lying comfortable in the stretcher. Patient is not in any acute respiratory distress. She is uncooperative, level 5 caveat HEAD AND FACE: No signs of trauma. No ecchymosis, hematomas or skull depressions. EYES: No injected conjunctiva, NECK: Supple, trachea is midline, no adenopathy, no JVD, no carotid bruit, neck with full ROM. EXTREMITIES: FROM in all major joints NEURO: Alert and oriented x 3. No acute neurological deficits. SKIN: Dry Triage Information Reviewed: Yes Vital Signs On Initial Exam: Initial Vitals Temp Pulse Resp BP Pulse Ox 95.7 F 78 18 111/83 98 12/07/18 02:47 12/07/18 02:47 12/07/18 02:47 12/07/18 02:47 12/07/18 02:47 Vital Signs Reviewed: Yes Diagnostics - Laboratory Result Diagrams: 12/07/18 03:22 12/07/18 03:22 Lab Statement: Any lab studies that have been ordered have been reviewed, and results considered in the medical decision making process. - Radiology CXR Radiology Interpretation Completed By: ED Physician Summary of Radiographic Findings: no acute process - EKG 0337 Cardiac Rate: NL - rate of 79 BPM EKG Rhythm: Sinus Rhythm Summary of EKG Findings: EKG showed sinus rhythm with rate of 79 BPM, non- specific T wave changes. Re-Evaluation - Re-Evaluation First Eval Re-Evaluation Time: 03:18 Comment: Rectal temp is 94.9 F, patient to be given joe hugger Altered Mental Statu Course/Dx - Course Course Of Treatment: Patient is a 63 y/o F presenting to ED for AMS. EMS reports that the patient has been outside of her home since 2300 yesterday, 12/06. In the room, patient is agitated and uncooperative. Level 5 Caveat. On physical exam, patient is noted to be obese and uncooperative. Rectal temp is 94.9 F, patient to be given joe hugger. Patient had serum alc of 331. UA showed 1+ urine blood. Labs showed total creatine kinase 298, lactic acid 2.3, glucose 111m creatinine 0.96, carbon dioxide 21. During ED course, patient was given fluids, banana bag, Ativan 2 mg IV and Ativan 2 mg IM, hydroxyzine 50 mg IM, and Haldol 5 mg IM. Patient is signed out to Dr. Whiting at 12/07/18 0700 shift change pending sobriety and re-eval at disposition. - Diagnoses Provider Diagnoses: Hypothermia, Alcohol intoxication Discharge - Sign-Out/Discharge Documenting (check all that apply): Sign-Out Patient Signing out patient TO: Loi Whiting Receiving patient FROM: Alyssa Escalante - Discharge Plan Referrals: Ebonie Dubon MD [Primary Care Provider] - - Attestation Statements Document Initiated by Scribe: Yes Documenting Scribe: CAITLIN MILLER Provider For Whom Scribe is Documenting (Include Credential): ALYSSA ESCALANTE MD Scribe Attestation: I, CAITLIN MILLER , scribed for ALYSSA ESCALANTE MD on 12/07/18 at 0632. Status of Scribe Document: Ready
[2018-12-07] MEDS ORDERED: LORazepam INJ* 2 MG/ML 1 ML VIAL ONE (03:26)
[2018-12-07] MEDS ORDERED: LORazepam INJ* 2 MG/ML 1 ML VIAL IV PUSH ONE (03:26)
[2018-12-07] MEDS ORDERED: NS 0.9% 1000 ML* 1,000 ML IV ONE (03:26)
[2018-12-07 03:27] LABS: Urine Appearance Clear; Urine Color Colorless
[2018-12-07 03:28] LABS: Urine Bilirubin Negative (Negative); Urine Blood 1+ (Negative); Urine Glucose Negative (Negative); Urine Ketones Negative (Negative); Urine Nitrite Negative (Negative); Urine Protein Negative (Negative); Urine Specific Gravity 1.005 (1.010-1.030); Urine Urobilinogen Negative (Negative)
[2018-12-07 03:34] LABS: ABS Basophils 0 10^3/ul (0-0.2); ABS Eosinophils 0.1 10^3/ul (0-0.6); ABS Lymphocytes 1.8 10^3/ul (1.0-4.8); ABS Monocytes 0.5 10^3/ul (0-0.8); ABS Neutrophils 4.4 10^3/ul (1.5-7.7); ABS Nucleated RBC 0 10^3/ul; Hematocrit 44 % (35-47); Hemoglobin 14.6 g/dl (12.0-16.0); Lymphocyte % 26.6 %; Mean Corpuscular HGB Conc 34 g/dl (31-36); Mean Corpuscular Hemoglobin 35 pg (27-31); Mean Corpuscular Volume 104 fL (80-97); Mean Platelet Volume 7.9 fL (7.4-10.4); Nucleated Red Blood Cells % 0.1; Platelet Count 147 10^3/ul (150-450); Red Blood Count 4.21 10^6/ul (4.00-5.40); Red Cell Distribution Width 15 % (10.5-15); White Blood Count 6.9 10^3/ul (3.5-10.8)
[2018-12-07 03:45] LABS: Barbiturates Urine Screen None Detected (None Detect); Benzodiazepine Urine Screen None Detected (None Detect); Urine Cannabinoids Screen None Detected (None Detect)
[2018-12-07 03:49] LABS: ALT 25 U/L (7-52); AST 29 U/L (13-39); Albumin 4.8 g/dL (3.2-5.2); Albumin/Globulin Ratio 1.8 (1-3); Alkaline Phosphatase 58 U/L (34-104); Anion Gap 11 mmol/L (2-11); BUN/Creatinine Ratio 10.4 (8-20); Blood Urea Nitrogen 10 mg/dL (6-24); CO2 Carbon Dioxide 21 mmol/L (22-32); Calcium 9.6 mg/dL (8.6-10.3); Chloride 105 mmol/L (101-111); Creatine Kinase 298 U/L (10-223); EGFR Non-African American 58.5 (>60); Globulin 2.7 g/dL (2-4); Glucose 111 mg/dL (70-100); Potassium 3.6 mmol/L (3.5-5.0); Sodium 137 mmol/L (135-145); Total Protein 7.5 g/dL (6.4-8.9)
[2018-12-07 04:10] LABS: Acetaminophen < 15 mcg/mL; Alcohol 331 mg/dL (<10); Salicylate < 2.50 mg/dL (<30)
[2018-12-07 04:25] LABS: TSH (Thyroid Stimulating Horm) 5.51 mcIU/mL (0.34-5.60)
--- NOTE | 2018-12-07 07:07 | ED ---
Progress - Progress Note Progress Note: RECEIVING SIGN-OUT FROM DR. ESCALANTE AT SHIFT CHANGE PENDING SOBRIETY AND DISPO. Pt is a 63 y/o F brought in by ambulance presenting to ED with AMS. At 0749: ED provider observing patient Patient is sleeping comfortably with clothes on. At 1009: ED provider at bedside Patient is alert and requesting D/C. Re-Evaluation - Re-Evaluation First Eval Re-Evaluation Time: 00:00 0 Re-Evaluation Time: 00:00 Course/Dx - Course Course Of Treatment: RECEIVING SIGN-OUT FROM DR. ESCALANTE AT SHIFT CHANGE PENDING SOBRIETY, REEVAL, AND DISPO. Patient sobered over here ER course. She now demonstrates functional capacity as demonstrated by clear speech, steady gait. She had reported dizziness which is improved. She felt that this was her reason for presentation to the ER. Her alcohol level was in the 3:30 range. She was warmed given her hypothermia. She is now normothermic. - Diagnoses Provider Diagnoses: Alcohol intoxication, Hypothermia - Critical Care Time Critical Care Time: 30-74 min - Critical care time is exclusive of separately billable procedures Discharge - Sign-Out/Discharge Documenting (check all that apply): Patient Departure - D/C, Receiving Sign-Out Receiving patient FROM: Ruben Escalante - PENDING SOBRIETY AND DISPO - Discharge Plan Condition: Improved Disposition: HOME Patient Education Materials: Alcohol Intoxication (ED), Acute Hypothermia (ED) Referrals: Ebonie Dubon MD [Primary Care Provider] - Additional Instructions: Never drink alcohol to excess. Do not drink today. Stay inside where it is warm. Return if worse, new symptoms or other concerns. Resources have been provided to you to help with your drinking. Call your doctor today to schedule prompt follow-up. - Billing Disposition and Condition Condition: IMPROVED Disposition: Home - Attestation Statements Document Initiated by Scribe: Yes Documenting Scribe: Ishan Begum Provider For Whom Chiomaibe is Documenting (Include Credential): Dr. Loi Whiting MD Scribe Attestation: Ishan Pruett scribed for Dr. Loi Whiting MD on 12/07/18 at 1053. Scribe Documentation Reviewed: Yes Provider Attestation: The documentation as recorded by the scribe, Ishan Begum accurately reflects the service I personally performed and the decisions made by me, Dr. Loi Whiting MD Status of Opal Document: Viewed
[2018-12-07 11:24] VITALS: BP 109/78
== END 2018-12-07 11:21 | disposition home or self-care (01) ==
LOC: ED 02:43
DX: F10.129 Alcohol abuse with intoxication, unspecified (principal); T68.XXXA Hypothermia, initial encounter
CPT/HCPCS: 36415; 71045; 80053; 80307; 80320; 80329; 81003; 81015; 82550; 83605; 84443; 85025; 93005; 96372; 96374; 96375; 96376; 99282; G0480; J1630; J2060; J3410; J3411

== ENCOUNTER 2019-02-09 18:11 | Inpatient (IN) | payer BC, OTHER ==
--- NOTE | 2019-02-09 19:01 | ED ---
Psychiatric Complaint - HPI Summary HPI Summary: This pt is a 63 y/o female presenting [facility] c/o SI for the past 7 days. Pt reports she has a lot of stress in her life and has been having SI thoughts. Per nurse's note, pt does not have a specific plan but was thinking about cutting her wrist and almost committed to it yesterday. Denies HI. She comes in to the ED voluntarily for a mental health evaluation. Pt lives at home alone. Denies any PMHx. Denies tobacco, alcohol, drug use. - History Of Current Complaint Chief Complaint: EDMentalHealth Time Seen by Provider: 02/09/19 18:47 Hx Obtained From: Patient Hx Last Menstrual Period: SEP 2002 Onset/Duration: Lasting Days - 7, Still Present Timing: Days - 7 Severity Currently: Moderate Character: Depressed Aggravating Factor(s): Recent Stress Alleviating Factor(s): Nothing Has Suicidal: Reports: Thoughts. Denies: With A Plan Has Homicidal: Denies: Thoughts, With A Plan - Allergies/Home Medications Allergies/Adverse Reactions: Allergies Allergy/AdvReac Type Severity Reaction Status Date / Time diphenhydramine Allergy Unknown Verified 02/09/19 18:21 [From Benadryl] Reaction Details Home Medications: Home Medications NK [No Home Medications Reported] 02/09/19 [History Confirmed 02/09/19] PMH/Surg Hx/FS Hx/Imm Hx Endocrine/Hematology History: Denies: Hx Diabetes, Hx Thyroid Disease Cardiovascular History: Denies: Hx Hypertension Respiratory History: Denies: Hx Asthma, Hx Chronic Obstructive Pulmonary Disease (COPD) GI History: Denies: Hx Ulcer Musculoskeletal History: Denies: Hx Rheumatoid Arthritis, Hx Osteoporosis - Surgical History Surgery Procedure, Year, and Place: gastric bypass - Immunization History Date of Tetanus Vaccine: utd Date of Influenza Vaccine: none Infectious Disease History: No Infectious Disease History: Denies: Hx Clostridium Difficile, Hx Hepatitis, Hx Human Immunodeficiency Virus (HIV), Hx of Known/Suspected MRSA, Hx Shingles, Hx Tuberculosis, Hx Known/ Suspected VRE, Hx Known/Suspected VRSA, History Other Infectious Disease, Traveled Outside the [place] in Last 30 Days - Family History Known Family History: Positive: Diabetes, Other - Cancer Negative: Cardiac Disease, Hypertension - Social History Alcohol Use: Daily Alcohol Amount: 3-4 glasses wine Substance Use Type: Reports: None Smoking Status (MU): Former Smoker Have You Smoked in the Last Year: No Review of Systems Negative: Fever Cardiovascular: Negative Respiratory: Negative Gastrointestinal: Negative Psychological: Other - POS: SI Positive: Depressed. Negative: Other - NEG: HI All Other Systems Reviewed And Are Negative: Yes Physical Exam - Summary Physical Exam Summary: Appearance: Well appearing, no pain distress Skin: warm, dry, reflects adequate perfusion Head/face: normal Eyes: EOMI, TAMEKA ENT: normal Neck: supple, non-tender Respiratory: CTA, breath sounds present Cardiovascular: RRR, pulses symmetrical Abdomen: non-tender, soft Musculoskeletal: normal, strength/ROM intact Neuro: normal, sensory motor intact, A&Ox3 Psych: depressed affect Triage Information Reviewed: Yes Vital Signs On Initial Exam: Initial Vitals Temp Pulse Resp BP Pulse Ox 97.9 F 93 15 127/89 95 02/09/19 18:18 02/09/19 18:18 02/09/19 18:18 02/09/19 18:18 02/09/19 18:18 Vital Signs Reviewed: Yes Diagnostics - Vital Signs Vital Signs Temp Pulse Resp BP Pulse Ox 02/09/19 18:18 97.9 F 93 15 127/89 95 - Laboratory Result Diagrams: 02/09/19 19:57 02/09/19 19:57 Lab Statement: Any lab studies that have been ordered have been reviewed, and results considered in the medical decision making process. Course/Dx - Course Assessment/Plan: Pt is a 63 y/o female who presents to the ED with SI for the past 7 days. Pt reports she has a lot of stress in her life. Blood work, urinalysis, toxicology obtained. Pt was medically cleared at 20:24. She is waiting for a MHE. Pt will be signed out to Dr. Whiting, pending disposition, awaiting MHE. - Differential Dx/Clinical Impression Differential Diagnosis/HQI/PQRI: Positive: Depression, Suicidal Ideation Provider Diagnosis: Suicidal ideation Discharge - Sign-Out/Discharge Documenting (check all that apply): Sign-Out Patient Signing out patient TO: Loi Whiting - pending MHE and dispo Patient Received Moderate/Deep Sedation with Procedure: No - Discharge Plan Condition: Stable Referrals: [facility] [Outside] Care [facility] [Outside] - Billing Disposition and Condition Condition: STABLE - Attestation Statements Document Initiated by Scribe: Yes Documenting Scribe: Noni Fortune Provider For Whom Scribe is Documenting (Include Credential): Jacob Chopra MD Scribe Attestation: INoni, scribed for Jacob Chopra MD on 02/09/19 at 2150. Scribe Documentation Reviewed: Yes Provider Attestation: The documentation as recorded by the Noni chambers accurately reflects the service I personally performed and the decisions made by meJacob MD Status of Scribe Document: Viewed
[2019-02-09 20:06] LABS: Barbiturates Urine Screen None Detected (None Detect); Benzodiazepine Urine Screen None Detected (None Detect); Urine Cannabinoids Screen None Detected (None Detect)
[2019-02-09 20:18] LABS: ABS Basophils 0 10^3/ul (0-0.2); ABS Eosinophils 0.1 10^3/ul (0-0.6); ABS Monocytes 0.4 10^3/ul (0-0.8); ABS Neutrophils 5.3 10^3/ul (1.5-7.7); ABS Nucleated RBC 0 10^3/ul; Hematocrit 42 % (33-41); Hemoglobin 14.2 g/dL (12.0-16.0); Lymphocyte % 14.5 %; Mean Corpuscular HGB Conc 34 g/dL (31-36); Mean Corpuscular Hemoglobin 34 pg (27-31); Mean Corpuscular Volume 99 fL (80-97); Mean Platelet Volume 9.6 fL (7.4-10.4); Nucleated Red Blood Cells % 0.2; Platelet Count 149 10^3/uL (150-450); Red Blood Count 4.23 10^6 /uL (3.70-4.87); Red Cell Distribution Width 14 % (10.5-15); White Blood Count 6.8 10^3/uL (3.5-10.8)
[2019-02-09 20:19] LABS: Urine Appearance Clear; Urine Bilirubin Negative (Negative); Urine Blood Negative (Negative); Urine Color Yellow; Urine Glucose Negative (Negative); Urine Ketones Negative (Negative); Urine Nitrite Negative (Negative); Urine Protein Negative (Negative); Urine Urobilinogen Negative (Negative)
[2019-02-09 20:20] LABS: ALT 13 U/L (7-52); AST 16 U/L (13-39); Albumin 4.4 g/dL (3.2-5.2); Albumin/Globulin Ratio 1.8 (1-3); Alkaline Phosphatase 56 U/L (34-104); Anion Gap 7 mmol/L (2-11); BUN/Creatinine Ratio 13.1 (8-20); Blood Urea Nitrogen 11 mg/dL (6-24); CO2 Carbon Dioxide 28 mmol/L (22-32); Calcium 9.4 mg/dL (8.6-10.3); Chloride 107 mmol/L (101-111); EGFR African American 82.6 (>60); EGFR Non-African American 68.3 (>60); Globulin 2.5 g/dL (2-4); Glucose 111 mg/dL (70-100); Potassium 3.9 mmol/L (3.5-5.0); Sodium 142 mmol/L (135-145); Total Protein 6.9 g/dL (6.4-8.9)
[2019-02-09 20:28] LABS: Urine Bacteria 1+ (Absent); Urine Red Blood Cell 2+(6-10/hpf) (Absent); Urine Squamous Epithelial Cell Present (Absent); Urine White Blood Cell 1+(6-10/hpf) (Absent)
[2019-02-09 20:41] LABS: Acetaminophen < 15 mcg/mL; Alcohol < 10 mg/dL (<10); Salicylate < 2.50 mg/dL (<30)
[2019-02-09 20:56] LABS: TSH (Thyroid Stimulating Horm) 3.35 mcIU/mL (0.34-5.60)
--- NOTE | 2019-02-09 22:02 | ED ---
Progress - Progress Note Progress Note: Receiving sign out from Dr. Chopra at shift change, pending MHE. Pt's condition has been stable. She is voluntarily admitted. Pt is agreeable with this plan. Course/Dx - Diagnoses Provider Diagnoses: Depression - Provider Notifications Discussed Care Of Patient With: Prabhu Leonard Time Discussed With Above Provider: 22:55 Instructed by Provider To: Admit As Inpatient - Voluntary admission, final diagnosis unspecified depression. Discharge - Sign-Out/Discharge Documenting (check all that apply): Patient Departure - Admit, Receiving Sign- Out Receiving patient FROM: Jacob Chopra Patient Received Moderate/Deep Sedation with Procedure: No - Discharge Plan Condition: Stable Disposition: [facility] [place] [facility] Referrals: Care [facility] [Outside] [facility] [Outside] - Attestation Statements Document Initiated by Scribe: Yes Documenting Scribe: Shy Stern Provider For Whom Scribe is Documenting (Include Credential): Loi Whiting MD Scribe Attestation: Shy Pruett, scribed for Loi Whiting MD on 02/09/19 at 2303. Status of Scribe Document: Ready
[2019-02-10] MEDS ORDERED: Al Hydrox/Mg Hydrox/Simet LIQ* 30 ML UDC PO PRN (04:47)
[2019-02-10 08:42] LABS: HDL Cholesterol 49.3 mg/dL
[2019-02-10] MEDS: Acetaminophen TAB* 325 MG PO PRN (08:59)
[2019-02-10] MEDS: Vitamin THERAPEUTIC TAB PO SCH (08:59)
[2019-02-10] MEDS ORDERED: Loperamide CAP* 2 MG PO PRN (11:47)
[2019-02-10] MEDS ORDERED: Ondansetron ODT TAB* 4 MG SL PRN (11:47)
[2019-02-10] MEDS ORDERED: Ibuprofen TAB* 400 MG PO PRN (11:48)
[2019-02-10] MEDS: Escitalopram * 10 MG TAB PO SCH (13:45)
--- NOTE | 2019-02-10 22:31 | HP ---
HISTORY AND PHYSICAL: DATE OF ADMISSION: 02/09/19 PROVIDER: Jeanna Mccarthy NP in Psychiatry. SUPERVISING PHYSICIAN: Frank Forrest MD* (dictated by Jeanna Mccarthy NP). JUSTIFICATION FOR ADMISSION: The patient is in need of 24-hour supervision and care secondary to suicidal ideation with multiple plans. CHIEF COMPLAINT: "I have thought about it off and on for many years." HISTORY OF PRESENT ILLNESS: The patient is a 63-year-old single, black woman with a history of depressive disorder and suicidal thoughts for years including a suicide attempt at age 17, who arrives, brought in by police and is here on a blank status following her being found in her apartment retreating from friends following a suicidal thought. Rafael is a woman who has had thoughts of suicide on and off for years, once had an overdose at 15 years old. She has never had counseling or psychiatric care. She has been thinking about suicide including walking to the top of a parking garage and considering jumping off and attempting to slit her wrist, but finding it too painful. She works at [employer] and at [employer]. She works for the [employer]. 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 She has been feeling insufficient and "not enough" and in fact her boss went to her boss's boss to complain about her not doing her job following a successful event that had two minor mishaps added. Apparently, that supervisor taping has "her back" nevertheless, Rafael "shut down" on Friday last and sent a text to her boss stating that she was not going to be in attendance at work. Apparently, she did not send enough texts as her friends reported her potentially suicidal and the police came to her door and brought her to the hospital. Her friends are now offering her support and she feels less isolated, but she "has to admit that she needs help." She just feels like she cannot cope any longer. Her sleep is disrupted. She is irritable. She feels guilty about not being good enough. Her energy is lowered. She cannot concentrate as well as she would like to. She is a bit agitated and she is depressed. PAST PSYCHIATRIC HISTORY: She has no prior treatment, neither counseling nor medications. She did have a suicide attempt (overdose) once at 15 years old and has thought about it on and off including making a variety of plans over the years (including overdose and jumping from a parking garage). She did not disclose traumas to me. She did not state that she had had any traumatic brain injuries. She has never taken psychiatric medications, although she is open to the possibility. PAST MEDICAL HISTORY: She asserts that she is healthy. There is a family history of diabetes. FAMILY HISTORY: There is alcoholism and anxiety in the past. SUBSTANCE ABUSE: Rafael acknowledges that she drinks too much alcohol. She states she drinks 3 to 4 glasses of wine a night, but she also was asked to leave [facility] after falling due to intoxication and hitting her head. She is unclear whether she is welcome to come back, but she does feel as though she was humiliated when asked to leave; that was 3 weeks ago. She would like to continue to go to that bar, but she does not know how she could go and not drink. She has never received treatment for alcohol or substance use. SOCIAL HISTORY: She has a mom who is and a father who 13 years ago, after the mother . The father made her feel insufficient, as though she was never good enough. He never offered her any encouragement she states. She has 3 siblings, an older sister and brother, both of whom live in [place]. She has a younger sister who lives in [place], [place]. Rafael states that she took care of mom and dad at the end of their lives, but oddly dad left money to the 3 siblings and none to her. She states her family does not communicate. She feels like they are indifferent to her, which is a theme in her life. She has a son named, Jermain and she has had "a rough relationship" with him. She states their relationship has been toxic. She wants to fix it, but she does not know how to do anything differently. She feels like she needs to improve boundaries and expectations. She states that everything she has tried has not worked. He is her only child; their lack of relationship is a source of pain. He has had a loving and positive response to this episode of depression and suicidality and has offered support to her. REVIEW OF SYSTEMS: Rafael reports feeling fatigued, although she slept well last night. She denies shortness of breath, heat or cold intolerance, chest pain or abdominal pain. She denies neurological symptoms. She denies fevers or changes in weight. PHYSICAL EXAMINATION VITAL SIGNS: On 02/09/19 at 22:30, her temperature was 97.8, pulse 70, respirations 16, O2 sat on room air 100%, blood pressure 152/72. For further exam data, please see emergency department records, which reflect a typical exam for a 63-year-old woman. LABORATORY DATA: Most results are within normal limits, exceptions include hematocrit high at 42, MCV high at 99, MCH high at 34 and platelet count low at 149. Glucose is high at 111. Hemoglobin A1c is normal at 5.1. Triglycerides are 116, cholesterol is 212, LDL cholesterol is 140, HDL cholesterol 49.3, TSH is 3.35. Urine contained leukocyte esterase, white blood cells, red blood cells , squamous epithelial cells, bacteria and hyaline casts. Toxicology screen revealed the presence of no illicit substances and no salicylates, acetaminophen or serum alcohol. MENTAL STATUS EXAMINATION: This is a tall woman who is overweight, who is black , who is cooperative and sitting calmly on her bed. Her speech is in normal rate, tone and volume. She is apparently euthymic, but also stressed. She has a full range of affect. Her thought processes are normal. Her thought content is free of delusions. She is not suicidal in this moment, although she does have plans to suicide and feels as though she would be suicidal upon discharge from the hospital at this time. She is not homicidal. She is not hallucinating. Her insight is good. Her judgment is fair. She is alert and oriented x3. DIAGNOSES: [place] I: Major depressive disorder, recurrent, moderate. IMPRESSION: Rafael is a 63-year-old woman appearing her stated age, who comes to the hospital following stressors that increased her disturbance with her own ability to be "sufficient" and finds herself with a number of suicidal plans and no reasonable way out of them that she knows. PLAN: The patient is admitted to the behavioral health unit and placed on q.15 - minute checks for her own safety. She is encouraged to participate in supportive milieu, individual and group therapies. Estimated length of stay is 3 to 7 days. We may obtain an MMPI for diagnostic clarification. We will start medication including Lexapro and titrate it to efficacy and monitor for mood and thought content. Discharge planning will include family involvement and outpatient providers. JEANNA MCCARTHY, AMY [id number]/[facility] #: [id number] VERNA
[2019-02-11] MEDS: Vitamin THERAPEUTIC TAB PO SCH (09:19)
[2019-02-11] MEDS: Escitalopram * 10 MG TAB PO SCH (09:19)
--- NOTE | 2019-02-11 14:53 | PN ---
Subjective - Subjective Date of Service: 02/11/19 Service Type: 96350 Hosp care 25 min moderate complexity Subjective: Kamron is doing well today. She is not thinking of suicide today on the inpatient unit and has earned several privileges; nevertheless, she poses a significant risk to herself in the outpatient setting as her plans continue to pop up in her head. She is highly anxious and is eager to keep track of the things she's brought with her, including a bound notebook and some lip gloss. We reviewed her labs and she was very pleased to discover that they were largely within normal limits and all within healthy limits. Kamron's son will visit her [facility]. Objective - General Observations Appearance: Neat Appears Stated Age: Yes Stature: Overweight, Tall Posture: WNL Eye Contact: Average Behavior/Activity: WNL - Interaction Observations Attitude Towards Examiner: Cooperative, Anxious Stated Mood: Dysphoric, Anxious Affect: Restricted Speech Pattern/Tone: Clear, Appropriate, Normal Volume Thought Process: Coherent Perception: WNL Thought Content: WNL, Preoccupation/Ruminations Thought Process: Lethality: Suicidal Planning Hallucination Type: None Delusion Type: None - Cognitive Function Orientation: A&O x 4 Level of Consciousness: Awake, Alert, Appropriate Cognition: WNL Insight: WNL Judgment Within Normal Limits: Yes Ability to Make Reasonable Decisions: Mildly Impaired - Medication Compliance Cooperative with Inpatient Medication Regimen: Yes - Group Participation Participates in Group Activities: Yes Assessment - Assessment Merits Inpatient Hospitalization: For Immediate Safety Clinical Impression: Kamron is a 63-year-old black woman who is employed and tends to drink too much alcohol in her recreational time who comes to the hospital with suicidal ideation with plans to jump from a parking garage or slit her wrists. Plan - Plan Treatment Plan: Name: KAMRON TIRADO Birthdate: 1955 [id number] Continued Medication Management: Different Medication Medications: Current Medications Acetaminophen (Tylenol Tab*) 650 mg PO Q4H PRN PRN Reason: PAIN or TEMP > 101 F Last Admin: 02/10/19 08:59 Dose: 650 mg Al Hydrox/Mg Hydrox/Simethicone (Maalox Plus*) 30 ml PO Q4H PRN PRN Reason: INDIGESTION Escitalopram Oxalate (Lexapro *) 5 mg PO DAILY SUSAN Last Admin: 02/11/19 09:19 Dose: 5 mg Ibuprofen (Motrin Tab*) 400 mg PO Q6H PRN PRN Reason: PAIN Loperamide HCl (Imodium Cap*) 2 mg PO .SEE DIRECTIONS PRN PRN Reason: DIARRHEA Multivitamins (Theragran Tab*) 1 tab PO DAILY SUSAN Last Admin: 02/11/19 09:19 Dose: 1 tab Ondansetron HCl (Zofran Odt Tab*) 4 mg SL Q6H PRN PRN Reason: NAUSEA/VOMITING - Discharge Plan Discharge Plan: Outpatient Follow Up Outpatient Program: Private Clinician(s)
[2019-02-12] MEDS: Vitamin THERAPEUTIC TAB PO SCH (10:42)
[2019-02-12] MEDS: Escitalopram * 10 MG TAB PO SCH (10:42)
--- NOTE | 2019-02-12 16:03 | PN ---
Subjective - Subjective Date of Service: 02/12/19 Service Type: 30382 Hosp care 15 min low complexity Subjective: Kamron is doing well, although she is tired due to not sleeping well. She agrees to stay the weekend and participate in programming. Medication is well tolerated thus far. She is making positive strides while maintaining good participation. Objective - General Observations Appearance: Neat Appears Stated Age: Yes Stature: Overweight, Tall Posture: WNL Eye Contact: Average Behavior/Activity: WNL - Interaction Observations Attitude Towards Examiner: Cooperative Stated Mood: Dysphoric Affect: Full Speech Pattern/Tone: Clear, Appropriate, Normal Volume Thought Process: Coherent Perception: WNL Thought Content: WNL Thought Process: Lethality: Passive Wish Hallucination Type: None Delusion Type: None - Cognitive Function Orientation: A&O x 4 Level of Consciousness: Awake, Alert, Appropriate Cognition: WNL Estimated Intelligence: Above Normal Insight: WNL Judgment Within Normal Limits: Yes Ability to Make Reasonable Decisions: Mildly Impaired - Medication Compliance Cooperative with Inpatient Medication Regimen: Yes - Group Participation Participates in Group Activities: Yes Assessment - Assessment Merits Inpatient Hospitalization: For Immediate Safety, For Discharge Planning Clinical Impression: Kamron is a 63-year-old black woman who is employed and tends to drink too much alcohol in her recreational time who comes to the hospital with suicidal ideation with plans to jump from a parking garage or slit her wrists. Plan - Plan Treatment Plan: Name: KAMRON TIRADO Birthdate: 1955 [id number] Kamron is benefitting from programming and from the support of friends and colleagues who are visiting as well as some peers from the milieu. She will benefit from continued stability and sobriety as well as plans for continued success in the outpatient setting. Medications: Current Medications Acetaminophen (Tylenol Tab*) 650 mg PO Q4H PRN PRN Reason: PAIN or TEMP > 101 F Last Admin: 02/10/19 08:59 Dose: 650 mg Al Hydrox/Mg Hydrox/Simethicone (Maalox Plus*) 30 ml PO Q4H PRN PRN Reason: INDIGESTION Escitalopram Oxalate (Lexapro *) 5 mg PO DAILY SUSAN Last Admin: 02/12/19 10:42 Dose: 5 mg Ibuprofen (Motrin Tab*) 400 mg PO Q6H PRN PRN Reason: PAIN Loperamide HCl (Imodium Cap*) 2 mg PO .SEE DIRECTIONS PRN PRN Reason: DIARRHEA Multivitamins (Theragran Tab*) 1 tab PO DAILY SUSAN Last Admin: 02/12/19 10:42 Dose: 1 tab Ondansetron HCl (Zofran Odt Tab*) 4 mg SL Q6H PRN PRN Reason: NAUSEA/VOMITING Trazodone HCl (Desyrel Tab*) 50 mg PO BEDTIME SUSAN
[2019-02-12] MEDS: traZODone TAB* 50 MG TAB PO SCH ×2 (21:55→22:53)
[2019-02-13] MEDS: Escitalopram * 10 MG TAB PO SCH (10:10)
[2019-02-13] MEDS: Vitamin THERAPEUTIC TAB PO SCH (10:12)
[2019-02-13] MEDS ORDERED: Zolpidem TAB* 5 MG PO PRN (16:59)
--- NOTE | 2019-02-13 17:03 | PN ---
Subjective - Subjective Date of Service: 02/13/19 Service Type: 52010 Hosp care 15 min low complexity Subjective: Rafael is seen in weekend coverage for NPP, Jeanna Mccarthy. The patient appears to be in improved spirits and is looking forward to discharge, perhaps on Friday (02/15). She is complaining of difficulty sleeping and complains that the prn trazodone gave her bad residual sedation in the morning. She denies SI. Objective - General Observations Appearance: Well Groomed Appears Stated Age: Yes Stature: WNL Posture: WNL Eye Contact: Average Behavior/Activity: WNL - Interaction Observations Attitude Towards Examiner: Cooperative Stated Mood: Euthymic Affect: Full Speech Pattern/Tone: Clear Thought Process: Coherent Perception: WNL Thought Content: WNL Hallucination Type: None Delusion Type: None - Cognitive Function Orientation: A&O x 4 Level of Consciousness: Awake Estimated Intelligence: Normal Insight: WNL Judgment Within Normal Limits: Yes - Medication Compliance Cooperative with Inpatient Medication Regimen: Yes - Group Participation Participates in Group Activities: Yes Assessment - Assessment Inpatient DSM-V Dx: F33.2 Clinical Impression: Rafael is a 63-year-old black woman who is employed and tends to drink too much alcohol in her recreational time who comes to the hospital with suicidal ideation with plans to jump from a parking garage or slit her wrists. BSU: Problem List - Patient Problems (1) MDD (major depressive disorder), recurrent episode, severe Current Visit: Yes Status: Acute Priority: Medium Code(s): F33.2 - MAJOR DEPRESSV DISORDER, RECURRENT SEVERE W/O PSYCH FEATURES SNOMED Code(s): 399544055142 Plan - Plan Treatment Plan: Name: RAFAEL TIRADO Birthdate: 1955 [id number] Rafael is benefitting from programming and from the support of friends and colleagues who are visiting as well as some peers from the milieu. She will benefit from continued stability and sobriety as well as plans for continued success in the outpatient setting. Continue escitalopram and start zolpidem prn for sleep. Continued Medication Management: Start Medication Medications: Current Medications Acetaminophen (Tylenol Tab*) 650 mg PO Q4H PRN PRN Reason: PAIN or TEMP > 101 F Last Admin: 02/10/19 08:59 Dose: 650 mg Al Hydrox/Mg Hydrox/Simethicone (Maalox Plus*) 30 ml PO Q4H PRN PRN Reason: INDIGESTION Escitalopram Oxalate (Lexapro *) 5 mg PO DAILY [facility]PLAC[facility] Last Admin: 02/13/19 10:10 Dose: 5 mg Ibuprofen (Motrin Tab*) 400 mg PO Q6H PRN PRN Reason: PAIN Loperamide HCl (Imodium Cap*) 2 mg PO .SEE DIRECTIONS PRN PRN Reason: DIARRHEA Last Admin: 02/13/19 10:11 Dose: 2 mg Multivitamins (Theragran Tab*) 1 tab PO DAILY [facility]PL[facility] Last Admin: 02/13/19 10:12 Dose: 1 tab Ondansetron HCl (Zofran Odt Tab*) 4 mg SL Q6H PRN PRN Reason: NAUSEA/VOMITING Zolpidem Tartrate (Ambien Tab*) 5 mg PO BEDTIME PRN PRN Reason: INSOMNIA - Discharge Plan Discharge Plan: Inpatient Hospitalization
[2019-02-14] MEDS: Acetaminophen TAB* 325 MG PO PRN (10:08)
[2019-02-14] MEDS: Vitamin THERAPEUTIC TAB PO SCH (10:08)
[2019-02-14] MEDS: Escitalopram * 10 MG TAB PO SCH (10:09)
[2019-02-15] MEDS: Vitamin THERAPEUTIC TAB PO SCH (10:04)
[2019-02-15] MEDS: Escitalopram * 10 MG TAB PO SCH (10:04)
--- NOTE | 2019-02-15 10:18 | PN ---
Subjective - Subjective Date of Service: 02/15/19 Service Type: 81578 Hosp care 25 min moderate complexity Subjective: Nursing Report: Patient was visible on unit, no chemical restraints or PRNs. Slept overnight without incident. Attending some group activities. CC: "I was planing to leave Patient was seen and evaluated for Selma Mccarthy [employer]. The patient reported that her son is missing and that he has a brown to her place. She reported having an adequate appetite and sleep. The patient reports attending and participating in some day groups. Per nursing no behavioral issues or overnight events reported. Patient reported that she is tolerating medications without side effects. She denied suicidal ideation, intent or plan. She denied homicidal ideation intent or plan. She denied auditory and or visual hallucinations. Objective - General Observations Appearance: Neat Appears Stated Age: Yes Stature: Overweight Posture: Slumped Eye Contact: Average Behavior/Activity: WNL - Interaction Observations Attitude Towards Examiner: Cooperative Speech Pattern/Tone: Clear Thought Process: Coherent Perception: WNL Thought Content: WNL Hallucination Type: Denies Delusion Type: None - Cognitive Function Orientation: A&O x 4 Level of Consciousness: Awake Insight: WNL Judgment Within Normal Limits: Yes - Medication Compliance Cooperative with Inpatient Medication Regimen: Yes - Group Participation Participates in Group Activities: Partial Assessment - Assessment Inpatient DSM-V Dx: F33.2 Clinical Impression: Kamron is a 63-year-old black woman who is employed and tends to drink too much alcohol in her recreational time who comes to the hospital with suicidal ideation with plans to jump from a parking garage or slit her wrists. Plan - Plan Treatment Plan: Name: KAMRON TIRADO Birthdate: 1955 [id number] #Continues to require inpatient psychiatric hospitalization #Q30 min observation #Continue current medication #Patients last Vital sign reading showed bradycardia a repeat reading showed Pulse 63 and BP 153/82 #Patient plans to be discharge tomorrow Sodium 142 mmol/L (135-145) 02/09/19 19:57 Potassium 3.9 mmol/L (3.5-5.0) 02/09/19 19:57 BUN 11 mg/dL (6-24) 02/09/19 19:57 Creatinine 0.84 mg/dL (0.51-0.95) 02/09/19 19:57 Hemoglobin A1c 5.1 % (4.0-5.6) 02/10/19 07:59 Calcium 9.4 mg/dL (8.6-10.3) 02/09/19 19:57 AST 16 U/L (13-39) 02/09/19 19:57 ALT 13 U/L (7-52) 02/09/19 19:57 Triglycerides 116 mg/dL 02/10/19 07:59 Cholesterol 212 mg/dL 02/10/19 07:59 LDL Cholesterol 140 mg/dL 02/10/19 07:59 Continued Medication Management: Continue Outpt Medication Medications: Current Medications Acetaminophen (Tylenol Tab*) 650 mg PO Q4H PRN PRN Reason: PAIN or TEMP > 101 F Last Admin: 02/14/19 10:08 Dose: 650 mg Al Hydrox/Mg Hydrox/Simethicone (Maalox Plus*) 30 ml PO Q4H PRN PRN Reason: INDIGESTION Escitalopram Oxalate (Lexapro *) 5 mg PO DAILY [facility] Last Admin: 02/15/19 10:04 Dose: 5 mg Ibuprofen (Motrin Tab*) 400 mg PO Q6H PRN PRN Reason: PAIN Loperamide HCl (Imodium Cap*) 2 mg PO .SEE DIRECTIONS PRN PRN Reason: DIARRHEA Last Admin: 02/13/19 10:11 Dose: 2 mg Multivitamins (Theragran Tab*) 1 tab PO DAILY [facility] Last Admin: 02/15/19 10:04 Dose: 1 tab Ondansetron HCl (Zofran Odt Tab*) 4 mg SL Q6H PRN PRN Reason: NAUSEA/VOMITING Zolpidem Tartrate (Ambien Tab*) 5 mg PO BEDTIME PRN PRN Reason: INSOMNIA - Discharge Plan Discharge Plan: Inpatient Hospitalization
[2019-02-15 17:56] LABS: Variant Hemoglobin 41.2 = Hb S %
[2019-02-16 08:49] VITALS: BP 145/66
[2019-02-16] MEDS: Acetaminophen TAB* 325 MG PO PRN (09:13)
[2019-02-16] MEDS: Vitamin THERAPEUTIC TAB PO SCH (09:13)
[2019-02-16] MEDS: Escitalopram * 10 MG TAB PO SCH (09:13)
--- NOTE | 2019-02-16 21:16 | DS ---
CC: [facility] * DISCHARGE SUMMARY: DATE OF ADMISSION: 02/09/19 DATE OF DISCHARGE: 02/16/19 PROVIDER: Jeanna Mccarthy NP, in Psychiatry. SUPERVISING PHYSICIAN: Dr. Frank Forrest.* (DICTATED BY JEANNA MCCARTHY NP) DIAGNOSIS: Major depressive disorder. CONDITION AT THE TIME OF DISCHARGE: Improved. Psychiatrically cleared. Stable. Rafael participated in groups and was social with peers. Her friends are agreeable to discharge as is Rafael. She has done well here psychiatrically. She tolerated the addition of Lexapro well. She is going to be attending [facility]. MENTAL STATUS EXAM: At the time of discharge, Rafael is calm, cooperative, and makes good eye contact. She is alert and oriented x3. Her grooming is excellent. Her speech pace is normal. Her thought processes are logical. She is not psychotic or delusional. She denies AH, VH, SI, and HI. Her insight and judgment are good. She is highly anxious, however. She is willing to follow up and urged to see a therapist. DISCHARGE INSTRUCTIONS TO THE PATIENT: A. Medications: Lexapro 5 mg daily. B. Diet is regular. C. Activities are as tolerated. Rafael is a nonsmoker. There are no studies pending at the time of discharge. D. Followup care: She has appointments with [facility] on 02/22/19 at 10:45 with Lilliam Rosas. She has an appointment with Dr. Dubon on Friday02/24/19 at 1:20 and she is also referred to the [facility] which is a peer-run organization with classes, groups and activities and she is urged to go to that. E. Substance abuse followup is not indicated, although she does drink to excess. She has determined that she does not want to go to rehab or outpatient treatment and she does not want a medication. HOSPITAL COURSE: Part A: Chief complaint: "I have thought about it off and on for many years." The patient is a 63-year-old single, black woman with a history of depressive disorder and suicidal thoughts for years including a suicide attempt at age 17, who arrives, brought in by police and is here on a voluntary status following her being found in her apartment retreating from friends following a suicidal thought. Rafael is a woman who has had thoughts of suicide on and off for years , once had an overdose at 15 years old. She has never had counseling or psychiatric care. She has been thinking about suicide including walking to the top of the parking garage and considering jumping off and attempting to slit her wrist, but finding it too painful. She works at [employer] and at [employer]. She works for the [employer]. 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 She has been feeling insufficient and "not enough" and in fact her boss went to her boss's boss to complain about her not doing her job following a successful event that had 2 minor mishaps added. Apparently, that material handling crew supervisor has "her back," nevertheless, Rafael "shut down" on Friday last and sent a text to her boss stating that she was not going to be in attendance at work. Apparently, she did not send enough text as her friends reported her potentially suicidal and the police came to her door and brought her to the hospital. Her friends are now offering her support and she feels less isolated, but she "has to admit that she needs help." She just feels like she cannot cope any longer. Her sleep is disrupted. She is irritable. She feels guilty about not being good enough. Her energy is lowered. She cannot concentrate as well as she would like to. She is a bit agitated and she is depressed. Part B: Psychiatric treatment was rendered. Rafael was admitted to the adult behavioral unit and placed on 15 minute checks for safety. She did well on the unit and went to groups. She interacted with her peers well. She did advance to 30 minutes checks and staff pass. We started Lexapro as it has a tolerable side effect profile and she indeed tolerated it well at 5 mg. She is not on an antipsychotic. Her son Jermain while she was here went missing and is presumed to be using drugs, which increases Rafael's anxiety regarding her safety at home. The anxiety was unmanageable on Friday and she stayed due to the potential for relapse and thoughts of suicide reemerging. Rafael is much improved in that she is no longer suicidal. She is less agitated, although she is visibly anxious and perhaps frightened regarding her discharge into the community where her son may have taken the keys to her apartment. She feels more supported and is prepared to take more responsibility in getting out into the world without drinking. JEANNA MCCARTHY, AMY [id number]/[facility] #: [id number] VERNA
== END 2019-02-16 14:15 | disposition home or self-care (01) | DRG 751 ==
LOC: ED 18:11 → BSU 22:42
PROVIDERS: ADMIT Psychiatry & Neurology Psychiatry; ATTEND Psychiatry & Neurology Psychiatry
DX: F33.2 Major depressive disorder, recurrent severe without psychotic features (principal); R45.851 Suicidal ideations; F41.9 Anxiety disorder, unspecified; E66.3 Overweight; Z88.8 Allergy status to other drugs, medicaments and biological substances; Z98.84 Bariatric surgery status; Z83.3 Family history of diabetes mellitus; Z72.89 Other problems related to lifestyle; Z91.5 Personal history of self-harm; Z68.35 Body mass index [BMI] 35.0-35.9, adult; Z87.891 Personal history of nicotine dependence
CPT/HCPCS: 36415; 80053; 80061; 80307; 80320; 80329; 81003; 81015; 83020; 83036; 84443; 85025; 85660; 87086; 99222; 99231; 99232; 99238; 99284; A9270-GY; G0480